=== PATIENT | male | born 1945 | race Caucasian/White ===

== ENCOUNTER 2017-11-26 16:33 | Inpatient (IN) | payer MEDICARE ==
[~2017-11-26] VITALS: Ht 170.2 cm; Wt 69.0 kg
[2017-11-26] MEDS ORDERED: UBID10CA7 PO (17:53)
[2017-11-26] MEDS ORDERED: ASPI-496 PO (17:54)
[2017-11-26] MEDS ORDERED: ROSU5TAB PO (17:54)
[2017-11-26] MEDS ORDERED: MESA1.2T PO (17:55)
[2017-11-26] MEDS ORDERED: CHOL2400 PO (17:57)
[2017-11-26] MEDS ORDERED: CYAN500T2 PO (17:57)
[2017-11-26] MEDS ORDERED: SODIUM CHLORIDE FLUSH 10ML SYR IVF ONE (18:30)
[2017-11-26] MEDS ORDERED: SODIUM CHLORIDE FLUSH 10ML SYR IVF PRN (19:00)
[2017-11-26] MEDS: SODIUM CHLORIDE 0.9% 1,000 ML IV SCH (19:30)
[2017-11-26] MEDS ORDERED: ACETAMINOPHEN 325 MG TABLET PO PRN (19:30)
[2017-11-26 22:24] VITALS: BP 145/74
[2017-11-26 22:55] LABS: TROPONIN I < 0.015 ng/mL (0.000-0.045)
[2017-11-27 02:00] VITALS: BP 111/61
[2017-11-27] MEDS: SODIUM CHLORIDE 0.9% 1,000 ML IV SCH ×2 (02:27→09:28)
[2017-11-27 05:27] LABS: BASOPHILS # (AUTO) 0.04 x10^3/uL (0-0.1); BASOPHILS % (AUTO) 1 % (0-1); EOSINOPHILS % (AUTO) 2 % (1-7); LYMPHOCYTES # (AUTO) 1.68 x10^3/uL (1-3.4); LYMPHOCYTES % (AUTO) 27 % (22-44); MD NO; MEAN CORPUSCULAR HEMOGLOBIN 33.8 pg (27.5-34.5); MEAN CORPUSCULAR HGB CONC 34.4 g/dL (33.2-36.2); MEAN CORPUSCULAR VOLUME 98.1 fL (81-97); MEAN PLATELET VOLUME 9.9 fL (7.4-10.4); MONOCYTES # (AUTO) 0.56 x10^3/uL (0.2-0.8); MONOCYTES % (AUTO) 9 % (2-9); NEUTROPHILS # (AUTO) 3.87 x10^3/uL (1.8-6.8); NEUTROPHILS % (AUTO) 62 % (42-75); PLATELET COUNT 157 x10^3/uL (130-400); RED BLOOD COUNT 4.62 x10^6/uL (4.38-5.82)
[2017-11-27 05:32] LABS: ALBUMIN 3.3 g/dL (3.4-5.0); CALCIUM 8.3 mg/dL (8.5-10.1); CHLORIDE 110 mmol/L (98-107)
[2017-11-27 05:38] LABS: ALANINE AMINOTRANSFERASE 30 U/L (12-78); ALKALINE PHOSPHATASE 78 U/L (45-117); ANION GAP 9 mmol/L (5-15); BILIRUBIN,TOTAL 1.6 mg/dL (0.2-1.0); CHOL/HDL RATIO 3.4; CHOLESTEROL, TOTAL 142 mg/dL (140-239); CREATININE 0.97 mg/dL (0.7-1.3); HDL CHOL % 30 % (26-37); HDL CHOLESTEROL (DIRECT) 42 mg/dL (40-60); LDL CHOLESTEROL,CALCULATED 69 mg/dL (54-169); LDL/HDL RATIO 1.6 (0.5-3.0); TOTAL PROTEIN 6.5 g/dL (6.4-8.2); TRIGLYCERIDES 154 mg/dL (50-200); TROPONIN I < 0.015 ng/mL (0.000-0.045); VLDL CHOLESTEROL 31 mg/dL (0-25)
[2017-11-27 07:58] VITALS: BP 131/81
[2017-11-27 08:03] VITALS: BP 171/96
[2017-11-27 08:08] VITALS: BP 148/90
[2017-11-27] MEDS ORDERED: UBIDECARENONE 10 MG PO SCH (09:00)
[2017-11-27] MEDS: ASPIRIN 81 MG TABLET EC PO SCH ×2 (09:00→09:10)
[2017-11-27] MEDS ORDERED: MESALAMINE 1.2 GM TABLET.DR PO SCH (09:00)
[2017-11-27] MEDS: MESALAMINE 0.375 GM HOMEMEDPO SCH (09:00)
[2017-11-27] MEDS ORDERED: MIDAZOLAM 1 MG/ML, 5ML ONE (09:09)
[2017-11-27] MEDS ORDERED: CEFAZOLIN PMX 1GM/50ML 50 ML ONE (09:09)
[2017-11-27] MEDS ORDERED: FENTANYL PF 100 MCG/2ML ONE (09:09)
[2017-11-27] MEDS ORDERED: CEFAZOLIN 1,000 MG ONE (09:10)
[2017-11-27] MEDS ORDERED: LIDOCAINE-MPF 2% ,5ML ONE (09:10)
[2017-11-27] MEDS ORDERED: HYDROcodone/APAP 5/325 TABLET PO PRN (11:00)
[2017-11-27] MEDS ORDERED: ACETAMINOPHEN 325 MG TABLET PO PRN (11:00)
[2017-11-27 13:15] VITALS: BP 111/69
[2017-11-27] MEDS: CEFAZOLIN PMX 1GM/50ML 50 ML IVPB SCH (17:43)
[2017-11-27 19:01] VITALS: BP 95/57
[2017-11-27] MEDS: ATORVASTATIN 10 MG TABLET PO SCH (20:35)
[2017-11-27] MEDS: SODIUM CHLORIDE FLUSH 10ML SYR IVF SCH (20:36)
[2017-11-28 01:09] VITALS: BP 136/83
[2017-11-28] MEDS: CEFAZOLIN PMX 1GM/50ML 50 ML IVPB SCH ×2 (01:12→20:32)
[2017-11-28 05:11] LABS: BASOPHILS # (AUTO) 0.02 x10^3/uL (0-0.1); BASOPHILS % (AUTO) 0 % (0-1); EOSINOPHILS # (AUTO) 0.07 x10^3/uL (0-0.4); EOSINOPHILS % (AUTO) 1 % (1-7); LYMPHOCYTES # (AUTO) 1.54 x10^3/uL (1-3.4); LYMPHOCYTES % (AUTO) 21 % (22-44); MD NO; MEAN CORPUSCULAR HEMOGLOBIN 33.5 pg (27.5-34.5); MEAN CORPUSCULAR HGB CONC 34.2 g/dL (33.2-36.2); MEAN PLATELET VOLUME 10.2 fL (7.4-10.4); MONOCYTES # (AUTO) 0.71 x10^3/uL (0.2-0.8); MONOCYTES % (AUTO) 10 % (2-9); NEUTROPHILS # (AUTO) 5.13 x10^3/uL (1.8-6.8); NEUTROPHILS % (AUTO) 69 % (42-75); PLATELET COUNT 146 x10^3/uL (130-400); RED BLOOD COUNT 4.73 x10^6/uL (4.38-5.82); RED CELL DISTRIBUTION WIDTH 13.3 % (9.4-14.8)
[2017-11-28 05:16] LABS: ANION GAP 8 mmol/L (5-15); CALCIUM 8.5 mg/dL (8.5-10.1); CHLORIDE 109 mmol/L (98-107); CREATININE 0.94 mg/dL (0.7-1.3)
[2017-11-28] MEDS: METOPROLOL TARTRATE 25 MG TABLET PO SCH ×2 (08:00→18:01)
[2017-11-28 08:29] VITALS: BP 154/86
[2017-11-28] MEDS: ASPIRIN 81 MG TABLET EC PO SCH (08:50)
[2017-11-28] MEDS: MESALAMINE 0.375 GM HOMEMEDPO SCH (09:00)
[2017-11-28] MEDS: SODIUM CHLORIDE FLUSH 10ML SYR IVF SCH ×3 (11:30→20:32)
[2017-11-28] MEDS ORDERED: MIDAZOLAM 1 MG/ML, 5ML ONE (11:33)
[2017-11-28] MEDS ORDERED: FENTANYL PF 100 MCG/2ML ONE (11:33)
[2017-11-28] MEDS ORDERED: CEFAZOLIN PMX 1GM/50ML 50 ML ONE (11:34)
[2017-11-28] MEDS ORDERED: CEFAZOLIN 1,000 MG ONE (11:34)
[2017-11-28] MEDS ORDERED: LIDOCAINE-MPF 2% ,5ML ONE (11:34)
[2017-11-28 14:38] VITALS: BP 105/65
[2017-11-28 19:09] VITALS: BP 135/75
[2017-11-28] MEDS: ATORVASTATIN 10 MG TABLET PO SCH (20:32)
[2017-11-29 02:37] VITALS: BP 152/81
[2017-11-29] MEDS: CEFAZOLIN PMX 1GM/50ML 50 ML IVPB SCH (04:46)
[2017-11-29 05:04] LABS: ANION GAP 6 mmol/L (5-15); CALCIUM 8.4 mg/dL (8.5-10.1); CHLORIDE 110 mmol/L (98-107); CREATININE 0.93 mg/dL (0.7-1.3)
[2017-11-29 05:34] VITALS: BP 144/77
[2017-11-29] MEDS: METOPROLOL TARTRATE 25 MG TABLET PO SCH (05:38)
[2017-11-29 06:40] VITALS: BP 139/79
[2017-11-29] MEDS: MESALAMINE 0.375 GM HOMEMEDPO SCH (09:00)
[2017-11-29] MEDS: SODIUM CHLORIDE FLUSH 10ML SYR IVF SCH ×2 (09:00)
[2017-11-29] MEDS: ASPIRIN 81 MG TABLET EC PO SCH (09:00)
[2017-11-29] MEDS ORDERED: METO25TA35 PO (11:17)
== END 2017-11-29 13:20 | disposition home or self-care (01) | DRG 243 ==
LOC: ED 18:45 → EDIP 18:46 → 5SO 21:28
PROVIDERS: ADMIT Hospitalist; ATTEND Hospitalist
PROC: 0JH606Z Insertion of Pacemaker, Dual Chamber into Chest Subcutaneous Tissue and Fascia, Open Approach (ICD-10-PCS; principal; 2017-11-27)
PROC: 02H63JZ Insertion of Pacemaker Lead into Right Atrium, Percutaneous Approach (ICD-10-PCS; 2017-11-27)
PROC: 02HK3JZ Insertion of Pacemaker Lead into Right Ventricle, Percutaneous Approach (ICD-10-PCS; 2017-11-27)
PROC: 02WA3MZ Revision of Cardiac Lead in Heart, Percutaneous Approach (ICD-10-PCS; 2017-11-28)
PROC: 4B02XSZ Measurement of Cardiac Pacemaker, External Approach (ICD-10-PCS; 2017-11-28)
DX: R00.1 Bradycardia, unspecified (principal); T82.120A Displacement of cardiac electrode, initial encounter; D69.6 Thrombocytopenia, unspecified; R55 Syncope and collapse; E78.00 Pure hypercholesterolemia, unspecified; E78.1 Pure hyperglyceridemia; E78.5 Hyperlipidemia, unspecified; F32.9 Major depressive disorder, single episode, unspecified; M19.90 Unspecified osteoarthritis, unspecified site; Z85.46 Personal history of malignant neoplasm of prostate; Z87.891 Personal history of nicotine dependence; Z90.79 Acquired absence of other genital organ(s); Z90.89 Acquired absence of other organs; Z98.1 Arthrodesis status; Z88.2 Allergy status to sulfonamides; Z88.8 Allergy status to other drugs, medicaments and biological substances; Z91.030 Bee allergy status; Z79.82 Long term (current) use of aspirin; Z79.899 Other long term (current) drug therapy; Y92.89 Other specified places as the place of occurrence of the external cause; Y83.1 Surgical operation with implant of artificial internal device as the cause of abnormal reaction of the patient, or of later complication, without mention of misadventure at the time of the procedure; Y92.239 Unspecified place in hospital as the place of occurrence of the external cause
CPT/HCPCS: 33208; 33215; 36415; 71045; 80048; 80053; 80061; 83735; 84100; 84443; 84484; 85025; 93005; 93306; 99156; 99157; 99285; C1779; C1785; C1892; J0690; J2250; J3010; J3490; J7030